=== PATIENT | male | born 1995 | race Hispanic/Latino ===

== ENCOUNTER 2018-04-27 23:33 | Emergency (ER) | payer OTHER | END 2018-04-28 00:41 | disposition home or self-care (01) | LOC: ERS 23:33 | DX: R50.9 Fever, unspecified (principal); Z87.891 Personal history of nicotine dependence | CPT/HCPCS: 87804; 99284 ==

== ENCOUNTER 2020-11-18 18:00 | Emergency (ER) | payer OTHER, SELFPAY | END 2020-11-18 20:42 | disposition home or self-care (01) | LOC: ERS 18:00 | DX: R20.2 Paresthesia of skin (principal); Z87.891 Personal history of nicotine dependence | CPT/HCPCS: 36416; 99284 ==